=== PATIENT | female | born 1995 | race Hispanic/Latino ===

== ENCOUNTER 2017-09-10 23:46 | Emergency (ER) | payer MEDICAID, OTHER ==
[~2017-09-10 23:46] MED LIST: DOCU-116 PO; FERR1TAB22 PO; IBUP-2077 PO; PREN-196 PO; PREN1TAB89 PO
[2017-09-11] MEDS ORDERED: HYOSCYAMINE SULFATE 0.125 MG TAB.SUBL SL ONE (00:11)
[2017-09-11] MEDS ORDERED: SIMETHICONE 80 MG TAB.CHEW ONE (00:11)
[2017-09-11] MEDS ORDERED: ACETAMINOPHEN EXTRA STRENGTH 500 MG TABLET ONE (00:11)
[2017-09-11] MEDS ORDERED: ONDANSETRON ODT 4 MG TAB ONE (00:12)
[2017-09-11 00:14] LABS: APPEARANCE,URINE Clear (CLEAR); BILIRUBIN,URINE Negative (NEGATIVE); COLOR,URINE Dark Yellow (YELLOW); GLUCOSE, URINE (UA) Negative (NEGATIVE); KETONES,URINE Negative (NEGATIVE); LEUKOCYTE ESTERASE ,URINE Trace (NEGATIVE); NITRATE,URINE Negative (NEGATIVE); OCCULT BLOOD,URINE Trace (NEGATIVE); PROTEIN,URINE Negative (NEGATIVE)
[2017-09-11 00:21] LABS: HCG,QUAL RESULT NEGATIVE (NEGATIVE)
[2017-09-11 00:27] LABS: BACTERIA,URINE None Seen /HPF (None Seen); MUCUS,URINE Moderate LPF (None Seen); SQUAMOUS EPITHELIAL CELL,UR Moderate /HPF (0-2)
== END 2017-09-11 01:56 | disposition home or self-care (01) ==
LOC: EDH 23:46
DX: R19.7 Diarrhea, unspecified (principal); R11.2 Nausea with vomiting, unspecified; R10.9 Unspecified abdominal pain
CPT/HCPCS: 81001; 81025

== ENCOUNTER 2021-04-24 23:36 | Observation (INO) | payer MEDICAID ==
[~2021-04-24] VITALS: Ht 162.6 cm; Wt 58.5 kg
[2021-04-25 00:18] LABS: APPEARANCE,URINE Clear (CLEAR); BILIRUBIN,URINE Negative (NEGATIVE); COLOR,URINE Yellow (YELLOW); GLUCOSE, URINE (UA) Negative (NEGATIVE); KETONES,URINE Negative (NEGATIVE); LEUKOCYTE ESTERASE ,URINE Small (NEGATIVE); NITRATE,URINE Negative (NEGATIVE); OCCULT BLOOD,URINE Negative (NEGATIVE); PH,URINE 6.5 (5.0-8.0); PROTEIN,URINE Negative (NEGATIVE); UROBILINOGEN,URINE 0.2 mg/dL (0.2-1.0)
[2021-04-25 00:25] LABS: AMPHET/METH SCREEN,URINE NEGATIVE (NEGATIVE); BARBITURATE SCREEN, URINE NEGATIVE (NEGATIVE); BENZODIAZEPINES SCREEN,URINE NEGATIVE (NEGATIVE); CANNABINOID SCREEN,URINE NEGATIVE (NEGATIVE); COCAINE SCREEN,URINE NEGATIVE (NEGATIVE); OPIATE SCREEN,URINE NEGATIVE (NEGATIVE); PHENCYCLIDINE SCREEN,URINE NEGATIVE (NEGATIVE)
[2021-04-25] MEDS ORDERED: LACTATED RINGERS 1000ML IV ONE (00:30)
[2021-04-25 00:36] LABS: BACTERIA,URINE Few /HPF (None Seen); RBC,URINE 0-1 /HPF (0-1)
[2021-04-25] MEDS ORDERED: PREN1TAB80 PO (01:08)
[2021-04-25] MEDS ORDERED: ACET160S2 PO (01:09)
[2021-04-25 01:10] VITALS: BP 118/70
[2021-04-25 01:12] LABS: BASOPHILS % (AUTO) 0.4 % (0.0-5.0); EOSINOPHILS % (AUTO) 1.1 % (0.0-8.0); HEMATOCRIT 29.1 % (36-48); LYMPHOCYTES % (AUTO) 5.3 % (21.0-51.0); MEAN CORPUSCULAR HEMOGLOBIN 29.3 pg (27.0-33.0); MEAN CORPUSCULAR HGB CONC 33.3 g/dL (32.0-36.0); MEAN CORPUSCULAR VOLUME 87.9 fL (79-99); MONOCYTES % (AUTO) 8.3 % (3.0-13.0); NUCLEATED RED BLOOD CELLS 0.2 % (0.0-0.19); PLATELET COUNT (AUTO) 200 K/uL (130-400); RED BLOOD CELL COUNT(AUTO) 3.31 MIL/uL (4.00-5.50); RED CELL DISTRIBUTION WIDTH 13.6 % (11.0-15.5); WHITE BLOOD COUNT (AUTO) 11.7 K/uL (4.8-10.8)
[2021-04-25 01:21] LABS: POTASSIUM 3.7 mmol/L (3.5-5.1)
[2021-04-25] MEDS: ACETAMINOPHEN 500 MG TABLET PO PRN ×4 (01:47→23:51)
[2021-04-25] MEDS: LACTATED RINGERS 1000ML 1,000 ML IV SCH ×2 (02:35→09:04)
[2021-04-26] MEDS ORDERED: ACETAMINOPHEN 500 MG TABLET PO PRN ×2 (00:30)
[2021-04-26 05:56] LABS: BASOPHILS % (AUTO) 0.3 % (0.0-5.0); EOSINOPHILS % (AUTO) 0.6 % (0.0-8.0); HEMATOCRIT 25.5 % (36-48); LYMPHOCYTES % (AUTO) 15.1 % (21.0-51.0); MEAN CORPUSCULAR HEMOGLOBIN 29.8 pg (27.0-33.0); MEAN CORPUSCULAR HGB CONC 33.3 g/dL (32.0-36.0); MEAN CORPUSCULAR VOLUME 89.5 fL (79-99); MONOCYTES % (AUTO) 11.7 % (3.0-13.0); NEUTROPHILS % (AUTO) 65.9 % (40.0-77.0); PLATELET COUNT (AUTO) 150 K/uL (130-400); RED BLOOD CELL COUNT(AUTO) 2.85 MIL/uL (4.00-5.50); RED CELL DISTRIBUTION WIDTH 14.3 % (11.0-15.5); WHITE BLOOD COUNT (AUTO) 6.4 K/uL (4.8-10.8)
[2021-04-26 06:10] LABS: ALBUMIN 2.4 g/dL (3.5-5.0); BILIRUBIN,TOTAL 0.3 mg/dL (0.2-1.0); CREATININE 0.5 mg/dL (0.5-1.5); POTASSIUM 3.3 mmol/L (3.5-5.1)
[2021-04-26] MEDS ORDERED: POTASSIUM CHLORIDE 10% ELIXIR 20 MEQ/15 ML UDCUP PO PRN (07:30)
[2021-04-26] MEDS ORDERED: POTASSIUM CHLORIDE 20MEQ/100ML 100 ML IV PRN (07:30)
[2021-04-26] MEDS ORDERED: LIDOCAINE HCL-MPF 1% 2ML VIAL IV PRN (07:30)
[2021-04-26 07:57] VITALS: BP 99/56
[2021-04-26] MEDS: KCL 20 MEQ ERTAB PO PRN ×3 (07:59→11:47)
[2021-04-26 11:57] VITALS: BP 98/54
[2021-04-26 15:51] VITALS: BP 112/64
== END 2021-04-26 17:50 | disposition home or self-care (01) ==
LOC: EDH 23:36 → LDH 23:37
PROVIDERS: ADMIT Specialist; ATTEND Specialist
DX: O98.513 Other viral diseases complicating pregnancy, third trimester (principal); U07.1 COVID-19; O99.283 Endocrine, nutritional and metabolic diseases complicating pregnancy, third trimester; E87.6 Hypokalemia; R00.0 Tachycardia, unspecified; O26.893 Other specified pregnancy related conditions, third trimester; R53.1 Weakness; Z3A.36 36 weeks gestation of pregnancy; Z79.899 Other long term (current) drug therapy; Z98.890 Other specified postprocedural states
CPT/HCPCS: 36415 ×2; 59025; 71045; 76819; 80051; 80053; 80305; 81001; 82550 ×3; 83605; 83874 ×3; 84484 ×3; 85025 ×2; 87040 ×2; 87635; 87804 ×2; 96360; 96361; G0378 ×42; J7120 ×3; 93005